=== PATIENT | female | born 1990 | race African-American/Black ===

== ENCOUNTER → 2017-10-03 16:02 | Outpatient (CLI) | payer MEDICAID ==
[~2017-10-03 16:02] MED LIST: ZPAK PO
== END | disposition home or self-care (01) ==
LOC: D.LDO 16:02
DX: O26.892 Other specified pregnancy related conditions, second trimester (principal); Z3A.19 19 weeks gestation of pregnancy; R05 Cough; R51 Headache

== ENCOUNTER → 2017-11-24 17:25 | Outpatient (CLI) | payer SELFPAY ==
[2017-11-24 18:18] LABS: APPEARANCE HAZY (CLEAR); BILIRUBIN NEGATIVE (NEGATIVE); COLOR YELLOW (YELLOW); GLUCOSE NEGATIVE (NEGATIVE); KETONE NEGATIVE (NEGATIVE); NITRITE NEGATIVE (NEGATIVE); PH 6.5 (5.0-6.0); PROTEIN NEGATIVE (NEGATIVE); SPECIFIC GRAVITY 1.015 (1.005-1.020); UROBILINOGEN NORMAL (NORMAL)
[2017-11-24 18:26] LABS: AMORPHOUS SEDIMENT <1+ /lpf (NONE SEEN); BACTERIA MANY /hpf (NONE SEEN); GRANULAR CAST RARE /lpf (NONE SEEN); HYALINE CAST OCC /lpf (NONE SEEN); MUCUS <1+ /lpf (NONE SEEN); RED CELLS - URINE OCC /hpf (0-5); WHITE CELLS - URINE 0-5 /hpf (0-5)
== END | disposition home or self-care (01) ==
LOC: D.LDO 17:25
PROVIDERS: Obstetrics & Gynecology
DX: O26.892 Other specified pregnancy related conditions, second trimester (principal); Z3A.26 26 weeks gestation of pregnancy; R10.2 Pelvic and perineal pain; M25.551 Pain in right hip

== ENCOUNTER → 2017-12-05 12:30 | Outpatient (CLI) | payer SELFPAY | END | disposition home or self-care (01) | LOC: D.LDO 12:30 | DX: O36.5930 Maternal care for other known or suspected poor fetal growth, third trimester, not applicable or unspecified (principal); Z3A.28 28 weeks gestation of pregnancy ==

== ENCOUNTER → 2017-12-17 14:38 | Outpatient (CLI) | payer MEDICAID | END | disposition home or self-care (01) | LOC: D.LDO 14:38 | DX: O36.5930 Maternal care for other known or suspected poor fetal growth, third trimester, not applicable or unspecified (principal); Z3A.29 29 weeks gestation of pregnancy ==

== ENCOUNTER → 2017-12-21 13:11 | Outpatient (CLI) | payer MEDICAID | END | disposition home or self-care (01) | LOC: D.LDO 13:11 | DX: O36.5930 Maternal care for other known or suspected poor fetal growth, third trimester, not applicable or unspecified (principal); Z3A.30 30 weeks gestation of pregnancy ==

== ENCOUNTER → 2017-12-26 15:19 | Outpatient (CLI) | payer MEDICAID | END | disposition home or self-care (01) | LOC: D.LDO 15:19 | DX: O36.5930 Maternal care for other known or suspected poor fetal growth, third trimester, not applicable or unspecified (principal); Z3A.31 31 weeks gestation of pregnancy ==

== ENCOUNTER → 2017-12-26 18:26 | Outpatient (CLI) | payer MEDICAID | END | disposition home or self-care (01) | LOC: D.LDO 18:26 | DX: O26.893 Other specified pregnancy related conditions, third trimester (principal); Z3A.31 31 weeks gestation of pregnancy; V43.52XA Car driver injured in collision with other type car in traffic accident, initial encounter; Y93.89 Activity, other specified; Y92.410 Unspecified street and highway as the place of occurrence of the external cause; R51 Headache ==

== ENCOUNTER → 2018-01-11 10:35 | Outpatient (CLI) | payer MEDICAID | END | disposition home or self-care (01) | LOC: D.LDO 10:35 | DX: O36.5930 Maternal care for other known or suspected poor fetal growth, third trimester, not applicable or unspecified (principal); Z3A.33 33 weeks gestation of pregnancy ==

== ENCOUNTER → 2018-01-23 15:57 | Outpatient (CLI) | payer MEDICAID ==
[2018-02-04 14:09] VITALS: BMI 24.5
== END | disposition home or self-care (01) ==
LOC: D.LDO 15:57
DX: O36.5930 Maternal care for other known or suspected poor fetal growth, third trimester, not applicable or unspecified (principal); Z3A.35 35 weeks gestation of pregnancy

== ENCOUNTER → 2018-01-30 15:13 | Outpatient (CLI) | payer MEDICAID ==
[2018-02-04 14:09] VITALS: BMI 24.5
== END | disposition home or self-care (01) ==
LOC: D.LDO 15:13
DX: O36.5930 Maternal care for other known or suspected poor fetal growth, third trimester, not applicable or unspecified (principal); Z3A.36 36 weeks gestation of pregnancy

== ENCOUNTER → 2018-02-01 11:17 | Outpatient (CLI) | payer MEDICAID ==
[2018-02-04 14:09] VITALS: BMI 24.5
== END | disposition home or self-care (01) ==
LOC: D.LDO 11:17
DX: O36.5930 Maternal care for other known or suspected poor fetal growth, third trimester, not applicable or unspecified (principal); Z3A.36 36 weeks gestation of pregnancy

== ENCOUNTER 2018-02-04 12:24 | Inpatient (IN) | payer MEDICAID ==
[~2018-02-04] VITALS: Ht 160 cm; Wt 62.6 kg
--- NOTE | ~2018-02-04 | DS ---
PATIENT:GAUTAM HIDALGO :89 MEDICAL RECORD: [id number] DISCHARGE SUMMARY ADMISSION DATE: 02/04/18 DISCHARGE DATE: 02/06/18 HISTORY OF PRESENT ILLNESS: The patient was admitted on 02/04/2018. A 27-year-old , at 36 weeks and 6 days, admitted for induction of labor due to intrauterine growth restriction. The patient was noted to be O positive, group B strep negative, and rubella immune. PAST MEDICAL HISTORY: Significant only for anemia and growth restriction. PAST SURGICAL HISTORY: The patient reported no significant past surgical history. ALLERGIES: REGLAN. FAMILY HISTORY: The patient reported no significant family history. SOCIAL HISTORY: The patient reported social history negative times 3. PHYSICAL EXAMINATION: VITAL SIGNS: On initial assessment, vital signs were found to be stable. The patient was afebrile and normotensive. LUNGS: Clear to auscultation. CARDIOVASCULAR: Regular rate and rhythm. PELVIC: Uterus was appropriately sized and nontender. EXTREMITIES: Lower extremities were free of erythema or Homans sign. The patient with a category 1 tracing. The patient had a biophysical profile of 6/10. Admit hemoglobin was found to be 9.5 with a platelet count of 241. ASSESSMENT AND PLAN AT ADMISSION: 1. Intrauterine at 36 weeks and 6 days. 2. Intrauterine growth restriction. 3. Anemia. Plan at that time for Pitocin induction of labor, AROM when appropriate. wellbeing was reassuring. The patient progressed and AROM was performed with clear fluid. The patient eventually progressed to the second stage of labor and had a spontaneous vaginal delivery over an intact perineum. Delivery note is as on the chart. The patient did well overnight on day #1, tolerating p.o. pain meds, general diet, ambulating well and voiding freely. On the morning of day #1, the patient continued to improve. Vital signs were stable. The patient was afebrile. hemoglobin was found to be stable. Uterus was infraumbilical and nontender with minimal lochia. The patient was discharged home on day #1 with instructions to follow up in 4 weeks. TRANSINT:[id number] Voice Confirmation ID: [id number] DOCUMENT ID: [id number] DISCHARGE SUMMARY REPORT [id number] GWENBOELISA CHERY MD at 1304 CC: [id number] DICTATION DATE: 03/17/18 0604 GROUP TESTER: 03/17/18 1605 DIS IN 02/06/18 [place] [id number] [place] [address]
[2018-02-04 14:09] VITALS: BP 100/52; Ht 160 cm; Wt 62.6 kg
[2018-02-04 15:19] LABS: HEMATOCRIT 29.9 % (36.0-48.0); HEMOGLOBIN 9.5 g/dL (12-16); MCH 27.8 pg (26.0-34.0); MCHC 31.8 g/dL (31.0-37.0); MCV 87.4 fL (80.0-100.0); RBC 3.42 10x6/uL (4.00-5.40); RDW 14.7 % (11.5-14.5); WBC 9.5 10x3/uL (4.8-10.8)
[2018-02-05 06:14] LABS: RAPID PLASMA REAGIN Non Reactive (Non Reactive)
[2018-02-05 07:38] VITALS: BP 92/44
[2018-02-05 13:10] VITALS: BP 98/45
[2018-02-05 16:59] LABS: BASOPHILS 0.1 % (0-2); EOSINOPHILS 0 % (0-7); HEMATOCRIT 27.2 % (36.0-48.0); HEMOGLOBIN 8.7 g/dL (12-16); IMMATURE GRANULOCYTES 0.2 % (0-5); LYMPHOCYTES 20.1 % (15-50); MCH 27.9 pg (26.0-34.0); MCV 87.2 fL (80.0-100.0); MEAN PLATELET VOLUME 10.8 fL (7.4-10.4); MONOCYTES 8.6 % (2-11); PLATELET COUNT 233 10x3/uL (130-400); RBC 3.12 10x6/uL (4.00-5.40); RDW 14.9 % (11.5-14.5); WBC 9.4 10x3/uL (4.8-10.8)
[2018-02-05 19:10] VITALS: BP 104/50
[2018-02-06 07:40] VITALS: BP 97/56
[2018-02-06 11:55] VITALS: BP 96/57
== END 2018-02-06 18:35 | disposition home or self-care (01) | DRG 775 ==
LOC: D.LDO 12:24 → D.LD 13:23 → D.WS 13:23
PROVIDERS: Obstetrics & Gynecology
PROC: 10E0XZZ Delivery of Products of Conception, External Approach (ICD-10-PCS; principal; 2018-02-05)
DX: O99.02 Anemia complicating childbirth (principal); O36.5930 Maternal care for other known or suspected poor fetal growth, third trimester, not applicable or unspecified; Z3A.36 36 weeks gestation of pregnancy; Z37.0 Single live birth

== ENCOUNTER 2020-12-30 09:34 | Outpatient (CLI) | payer OTHER ==
[2020-09-01 12:46] VITALS: BMI 22.3
[~2020-12-30 09:34] MED LIST changes: +AMOXICILLIN500 M1 PO; +MACROBID100 MG PO; +VITAMIN B-625 MG PO
== END 2020-12-30 13:53 | disposition home or self-care (01) ==
LOC: D.LABREF 09:34 → D.LDO 09:34
PROVIDERS: ATTEND Family Medicine
DX: O36.8190 Decreased fetal movements, unspecified trimester, not applicable or unspecified (principal)

== ENCOUNTER → 2021-02-05 19:38 | Outpatient (CLI) | payer OTHER ==
[2020-09-01 12:46] VITALS: BMI 22.3
== END | disposition home or self-care (01) ==
LOC: D.LDO 19:38
PROVIDERS: ATTEND Obstetrics & Gynecology
DX: O26.899 Other specified pregnancy related conditions, unspecified trimester (principal)

== ENCOUNTER → 2021-02-08 12:21 | Outpatient (CLI) | payer OTHER ==
[2020-09-01 12:46] VITALS: BMI 22.3
[2021-02-08 13:41] LABS: CALC OSMOLALITY 272 mosm/kg (275-300); CALCIUM 9.1 mg/dL (8.5-10.1); CARBON DIOXIDE 22.4 mmol/L (21.0-32.0); CHLORIDE - SERUM 105 mmol/L (98-107); CREATININE - SERUM 0.7 mg/dL (0.6-1.3); GLUCOSE 84 mg/dL (74-106); POTASSIUM - SERUM 3.7 mmol/L (3.5-5.1); SODIUM 138 mmol/L (136-145); UREA NITROGEN 6 mg/dL (7-18); eGFR NON AFRICAN AMERICAN > 90 mL/min (90-120)
[2021-02-08 13:42] LABS: BASOPHILS 0 % (0-2); EOSINOPHILS 0 % (0-7); HEMATOCRIT 30.3 % (36.0-48.0); HEMOGLOBIN 9.7 g/dL (12-16); LYMPHOCYTES 9.2 % (15-50); MCH 27.8 pg (26.0-34.0); MCHC 32.1 g/dL (31.0-37.0); MCV 86.4 fL (80.0-100.0); MEAN PLATELET VOLUME 9.6 fL (7.4-10.4); NEUTROPHILS 84.8 % (40-80); PLATELET COUNT 249 10x3/uL (130-400); RDW 16.1 % (11.5-14.5); WBC 9.1 10x3/uL (4.8-10.8)
[2021-02-08 13:47] LABS: ALBUMIN 2.9 g/dL (3.4-5.0); ALKALINE PHOSPHATASE 168 U/L (30-120); ALT (SGPT) 13 U/L (10-68); BILIRUBIN - TOTAL 0.52 mg/dL (0.2-1.3); PROTEIN - SERUM 7.5 g/dL (6.4-8.2)
[2021-02-08 15:08] LABS: BACTERIA MOD HPF (<MOD); BILIRUBIN NEGATIVE (NEGATIVE); KETONE TRACE mg/dL (< 1+); NITRITE NEGATIVE (NEGATIVE); SQUAMOUS EPITHELIAL 2 HPF (0-4); UROBILINOGEN NORMAL mg/dL (< 2); WHITE CELLS - URINE 32 HPF (0-4)
== END | disposition home or self-care (01) ==
LOC: D.LDO 12:21
PROVIDERS: ATTEND Obstetrics & Gynecology
DX: O26.899 Other specified pregnancy related conditions, unspecified trimester (principal); R11.10 Vomiting, unspecified